=== PATIENT | female | born 1960 | race Caucasian/White ===

== ENCOUNTER 2017-06-23 13:34 | Emergency (ER) | payer BC ==
[~2017-06-23] VITALS: Ht 167.6 cm; Wt 108.9 kg
== END 2017-06-23 14:41 | disposition home or self-care (01) ==
LOC: ED 13:34
DX: M25.562 Pain in left knee (principal)

== ENCOUNTER 2019-10-21 05:40 | Day surgery (SDC) | payer OTHER ==
[~2019-10-21] VITALS: Ht 167.6 cm; Wt 119.8 kg
[~2019-10-21 05:40] MED LIST: PROZAC20 MG PO
[2019-10-21] MEDS ORDERED: MELATONIN3 MG PO (05:49)
--- NOTE | 2019-10-21 08:34 | NUR ---
10/21/19 0834 Gardenia Huffman 0818-PT ARRIVES TO PACU AND MOVES HEAD AND OPENS EYES TO VERBAL STIMULUS. PT STARTS TO HAVE GREEN, BILE TYPE EMSIS. DES AND MITZI RN AT BEDSIDE WITH THIS RN. HOB INCREASED AND SUCTION USED TO CLEAR AIRWAY. PT ABLE TO COUGH AND CLEAR OWN AIRWAY. PT UNABLE TO ANSWER QUESTIONS ABOUT FURTHER NAUSEA/PAIN AT THIS TIME. VSS. 0830-VSS. PT WAKES TO VERBAL STIMULUS. PT VOMITS AGAIN, EMESIS IS GREEN AND LIQUID. SUCTION USED. IV PHENERGAN USED.
--- NOTE | 2019-10-21 09:10 | NUR ---
CHRISTELLE MCCORMACK ON WARM. WARM BLANKET GIVEN. CALL LIGHT WITHIN REACH. ICED WATER GIVEN.
[2019-10-21] MEDS ORDERED: NORCO 5-325 TA1 EACH PO (09:28)
[2019-10-21] MEDS ORDERED: MOTRIN IB200 MG PO (09:28)
--- NOTE | 2019-10-21 10:09 | NUR ---
PATIENT WAKES EASILY TO MY VOICE AND REPORTS FEELING "VERY SLEEPY." PATIENT FALLS QUICKLY BACK TO SLEEP WHEN UNSTIMULATED. CHRISTELLE MCCORMACK CONTINUES ON WARM. PATIENT DENIES NEEDS AT THIS TIME.
--- NOTE | 2019-10-21 11:36 | NUR ---
LE 1110: PATIENT IS UP TO THE BATHROOM. PATIENT AMBULATES WELL AND DENIES DIZZINESS. PATIENT VOIDS 125 ML BLOOD TINGED URINE AND DISCHARGE INSTRUCTIONS ARE GIVEN. PATIENT VERBALIZES UNDERSTANDING. PATIENT TRANSFERS SELF TO WHEELCHAIR AND THEN TO PERSONAL VEHICLE AND DOES THAT WELL.
--- NOTE | 2019-10-21 12:03 | NUR ---
PT ALERT, ORIENTED AND SEEMS PREPARED. HAD FEW QUESTIONS, BU DID ENGAGE PT IN VISIT REGARDING HER COVID 19 EXPERIENCE. PT WAS LAYED OFF FROM HER EMPLOYMENT DUE TO VIRUS. SHE HAS BEEN UNABLE TO SIGN UP FOR UNEMPLOYMENT BENEFITS-ON HOLD OVER 4 HRS ON SEVERAL DIFFERENT OCCASIONS. PT ALSO INFORMED ME THAT HER PRESENT POSITION HAS BEEN CUT, AND SHE IS NOW LOOKING FOR NEW EMPLOYMENT. PT REQUESTED PRAYER FOR NOT ONLY HER HEALTH, BUT JOB WELL. GAVE COMFORT, PT SEEMS TO BE DEALING APPROPRIATELY.
--- NOTE | 2019-10-22 11:57 | PATH ---
[facility] [address] [place], [place] [address] Signed SPECIMEN(S): A ENDOMETRIAL CURETTINGS SPECIMEN(S): B ENDOCERVICAL CURETTINGS SPECIMEN SOURCE: A. ENDOMETRIAL CURETTINGS B. ENDOCERVICAL CURETTINGS CLINICAL HISTORY: Postmenopausal bleeding. FINAL PATHOLOGIC DIAGNOSIS: A. Endometrium, curettage: - Fragments of inactive endometrial glands and some cystically dilated glands. - Negative for hyperplasia, atypia, and malignancy. B. Endocervix, curettage: - Fragments of inactive endometrial glands with scattered cystically dilated glands. - Fragments of benign endocervix. - Negative for hyperplasia, atypia, and malignancy. DDF:cml:C2NR MICROSCOPIC EXAMINATION: Histologic sections of all submitted blocks are examined by light microscopy. These findings, together with the gross examination, support the pathologic diagnosis. GROSS DESCRIPTION: Two specimens are received in two containers, labeled "SS." A. The specimen, labeled "SS, A," and designated on the requisition "endometrial curettings," is received in formalin and consists of drew soft tissue fragments with mucus and clot material measuring 2.6 x 2.5 x 0.8 cm in aggregate. Specimen is filtered and entirely submitted in cassette A1. B. The specimen, labeled "SS, B," and designated on the requisition "endocervical curettings," is received in formalin and consists of drew-brown soft tissue fragments with mucus and clot material measuring 2.8 x 1.6 x 0.4 cm in aggregate. Specimen is filtered and entirely submitted in cassette B1. AT (under the direct supervision of a pathologist) The Gross Description was prepared using a voice recognition system. The report was reviewed for accuracy; however, sound-alike word errors, addition PATIENT NAME: ELISE MCDONALD PATHOLOGY DATE OF : 60 REPORT #: [id number] PHYSICIAN: TERRA SUN PCP: CHRIS CHARLES PA-C REPORT IS CONFIDENTIAL AND NOT TO BE RELEASED WITHOUT AUTHORIZATION [facility] [address] [place], [place] [address] Signed and/or deletions may occur. If there is any question about this report, please contact Client Services. PERFORMING LABORATORY: The technical component was performed by [facility], [address] [place] [id number] (Rim Fire Charger Operator: Tayla Mitchell MD; CLIA# [id number]). [facility], [address] [address] (CLIA# [id number]). Diagnostician: Norberto Briones DO Pathologist Electronically Signed 10/22/2019 Copies: ~ PATIENT NAME: ELISE MCDONALD PATHOLOGY DATE OF : 60 REPORT #: [id number] PHYSICIAN: TERRA PATHOLOGY PCP: CHRIS CHARLES PA-C REPORT IS CONFIDENTIAL AND NOT TO BE RELEASED WITHOUT AUTHORIZATION
--- NOTE | 2019-10-22 13:09 | OR ---
[facility] [address] [place] [address] Signed DATE OF OPERATION: 10/21/2019 SURGEON: Berto Hampton MD PREOPERATIVE DIAGNOSIS: Postmenopausal bleeding. POSTOPERATIVE DIAGNOSIS: Postmenopausal bleeding. PROCEDURE: Hysteroscopy with D and C and ECC. ANESTHESIA: General. ESTIMATED BLOOD LOSS: 20 mL. COMPLICATIONS: None. DRAINS: None. FINDINGS: Cervix small, thick, closed, uterus small sized. There was a slightly thickened endocervical tissue, but otherwise appeared fairly normal. The endometrial cavity appeared to be just to the patient's left side with the left ostia seen. Right ostia could not be seen and the cavity did not appear to be normal triangular shape. The endometrial tissue was smooth with no polyps or abnormal lesions seen. DESCRIPTION OF PROCEDURE: The patient was brought into the operating room, placed in supine position. After adequate general anesthesia was obtained, was placed in the dorsal lithotomy position, prepped and draped in usual sterile fashion. Bladder was emptied with straight catheterization. A Penn retractor inserted in the vagina and the Sherri above and the anterior lip of cervix grasped with an Allis clamp. The cervix was then serially dilated up to a #7 dilator. The hysteroscope was then set up and placed in the endocervical canal, entered the uterine cavity under direct visualization using sterile Electronically Signed By: BERTO HAMPTON MD 10/22/19 1309 PATIENT NAME: ELISE MCDONALD OPERATIVE REPORT DATE OF : 60 REPORT #: [id number] PHYSICIAN: BERTO HAMPTON MD PCP: HILARY PERSAUD PA-C REPORT IS CONFIDENTIAL AND NOT TO BE RELEASED WITHOUT AUTHORIZATION [address] [id number] Signed saline as distending medium. The above findings were noted. A MyoSure Lite was then placed through the hysteroscope and the tissue in the uterine cavity biopsied under direct visualization in a 360-degree fashion up to the fundus and down to the lower segment. The other ostia were never seen even with dissection. The hysteroscope was then brought down into the tissue and the endocervical canal biopsied with the MyoSure Lite under direct visualization, this was collected separately from the endometrial tissue. At this point, the hysteroscope was removed. The cervix noted to have good hemostasis. All instruments were removed from the vagina. The patient tolerated the procedure well and went to the recovery room in good condition. The sponge, needle and instrument counts were correct at the end of the procedure. The endometrial curettings and endocervical curettings were sent separately to Pathology for identification. MD JACKLYN Quintero/ELPIDIO /[id number] cc: Hilary Persaud PA-C Copies: HILARY PERSAUD PA-C ~ Electronically Signed By: BERTO HAMPTON MD 10/22/19 1309 PATIENT NAME: ELISE MCDONALD OPERATIVE REPORT DATE OF : 60 REPORT #: [id number] PHYSICIAN: BERTO HAMPTON MD PCP: HILARY PERSAUD PA-C REPORT IS CONFIDENTIAL AND NOT TO BE RELEASED WITHOUT AUTHORIZATION
== END 2019-10-21 11:20 | disposition home or self-care (01) ==
LOC: DS 05:40
PROVIDERS: General Practice
PROC: 0UDB8ZZ Extraction of Endometrium, Via Natural or Artificial Opening Endoscopic (ICD-10-PCS; principal; 2019-10-21 06:45)
DX: N85.8 Other specified noninflammatory disorders of uterus (principal); F32.9 Major depressive disorder, single episode, unspecified; F17.200 Nicotine dependence, unspecified, uncomplicated; E66.9 Obesity, unspecified; Z68.41 Body mass index [BMI] 40.0-44.9, adult; Z79.899 Other long term (current) drug therapy
CPT/HCPCS: 00952; J1885; J2250; J2550; J2704; J7121

== ENCOUNTER 2019-11-29 09:49 | Emergency (ER) | payer OTHER ==
[~2019-11-29] VITALS: Ht 167.6 cm; Wt 119.8 kg
[~2019-11-29 09:49] MED LIST changes: +MELATONIN3 MG PO; +MOTRIN IB200 MG PO; +NORCO 5-325 TA1 EACH PO
== END 2019-11-29 10:02 | disposition home or self-care (01) ==
LOC: ED 09:49
DX: M25.572 Pain in left ankle and joints of left foot (principal)

== ENCOUNTER 2022-04-23 12:27 | Emergency (ER) | payer OTHER ==
[~2022-04-23] VITALS: Ht 167.6 cm; Wt 119.8 kg
[2022-04-23] MEDS ORDERED: VITAMIN D21250 MCG PO (12:43)
[2022-04-23] MEDS ORDERED: ONDANSETRON ODT8 MG PO (16:05)
--- NOTE | 2022-04-23 22:19 | EKG ---
[facility] [address] [facility] [place] [address] Signed Normal sinus rhythm Normal ECG No previous ECGs available Confirmed by Suhail Guerra MD () on 04/23/2022 10:18:54 PM Electronically Signed By: SUHAIL GUERRA MD 04/23/22 2219 PATIENT NAME: ELISE MCDONALD Electrocardiogram DATE OF : 60 PHYSICIAN: SUHAIL GUERRA MD REPORT #: [id number] REPORT IS CONFIDENTIAL AND NOT TO BE RELEASED WITHOUT AUTHORIZATION
== END 2022-04-23 16:19 | disposition home or self-care (01) ==
LOC: ED 12:27
DX: B34.9 Viral infection, unspecified (principal); E86.0 Dehydration; Z20.822 Contact with and (suspected) exposure to COVID-19; Z79.899 Other long term (current) drug therapy
CPT/HCPCS: 36415; 71045; 80053; 81001; 85025; 87502; 93005; 93010; 96361; 96374; 99284-25; C9803; J2405; J7030; U0003

== ENCOUNTER 2025-03-17 07:22 | Day surgery (SDC) | payer OTHER ==
[~2025-03-17] VITALS: Ht 167.6 cm; Wt 108.0 kg
[~2025-03-17 07:22] MED LIST changes: +CEFAZOLIN SODIUM 2 GM in SODIUM CHLORIDE 0.9% 100 ML IV SCH; +CHLORTHALIDONE25 MG PO; +HYDROCODON-ACE1 EA10 PO; +HYDROXYZINE HCL25 MG PO; +IBLOOD GLUCOSE TEST STRIP 1 EA TEST VI PRN; +IBU600 MG PO; +LACTATED RINGER'S 1,000 ML IV SCH; +LIDOCAINE HCL 1% 5 ML SDV INJ ONE; +MULTI VITAMIN1 EACH PO; +ONDANSETRON ODT8 MG PO; +PAXLOVID 300-11 EAC1 PO; +VITAMIN D21250 MCG PO
[2025-03-17 07:42] VITALS: BP 135/79
[2025-03-17] MEDS ORDERED: HYDROCODON-ACE1 EA10 PO (07:48)
--- NOTE | 2025-03-17 09:00 | NUR ---
0900- PT IN POSITION OF COMFORT, BUT REQUESTED WARM BLANKET DUE TO ROOMS TEMP. NO OTHER NEEDS AT THIS TIME. CALL LIGHT IN REACH.
--- NOTE | 2025-03-17 09:38 | NUR ---
09:38- PT REQUESTED FOR HOB TO BE LOWERED AND LIGHTS TO BE TURNED OFF/ NO OTHER NEEDS AT THIS TIME. CALL LIGHT IN REACH.
[2025-03-17] MEDS ORDERED: BUPIVACAINE HCL 0.5% 30 ML VIAL ONE (10:16)
--- NOTE | 2025-03-17 10:48 | NUR ---
1045- PT RESTING WITH LIGHTS OFF. PT UPDATED ON TIME FRAME FOR PROCEDURE. PT REPORTS NO NEEDS AT THIS TIME. CALL LIGHT IN REACH.
[2025-03-17] MEDS ORDERED: KETAMINE in NS 50 MG/5 ML SYR ONE (11:19)
[2025-03-17] MEDS ORDERED: fentaNYL citrate 100 MCG/2 ML VIAL ONE ×2 (11:19→13:20)
[2025-03-17] MEDS ORDERED: DEXAMETHASONE SOD PHOS 4 MG/ML VIAL ONE (11:20)
[2025-03-17] MEDS ORDERED: MAGNESIUM SULFATE 1 GM/2 ML VIAL ONE (11:20)
[2025-03-17] MEDS ORDERED: ACETAMINOPHEN 1,000 MG/100 ML VIAL ONE (11:20)
[2025-03-17] MEDS ORDERED: ROCURONIUM BROMIDE 50 MG/5 ML SYR ONE (11:20)
[2025-03-17] MEDS ORDERED: LIDOCAINE HCL 2% 5 ML SDV ONE (11:20)
[2025-03-17] MEDS ORDERED: ESMOLOL HCL 100 MG/10 ML VIAL IV ONE (11:56)
[2025-03-17] MEDS ORDERED: GLYCOPYRROLATE 1 MG/5 ML MDV ONE (12:15)
[2025-03-17] MEDS ORDERED: fentaNYL citrate 50 MCG/ML SDV IV PRN (12:45)
[2025-03-17] MEDS ORDERED: HYDROmorphone HCL 1 MG/ML SYR IV PRN (12:45)
[2025-03-17] MEDS ORDERED: NALOXONE HCL 0.4 MG SYR IV PRN (12:45)
[2025-03-17] MEDS ORDERED: IBLOOD GLUCOSE TEST STRIP 1 EA TEST VI PRN (12:45)
[2025-03-17] MEDS ORDERED: KETOROLAC TROMETHAMINE 30 MG/ML VIAL IV PRN (12:45)
[2025-03-17] MEDS ORDERED: SUGAMMADEX SODIUM 200 MG/2 ML ML ONE (12:59)
[2025-03-17] MEDS ORDERED: SEVOFLURANE 250 ML BTL INH ONE (13:42)
--- NOTE | 2025-03-17 14:46 | NUR ---
1440- PT REPORT RECIEVED FROM BOILER COVERER HELPER. BOILER COVERER HELPER REPORTED PT WAS NAUSEATED AND WRETCHING IN PACU. MEDS GIVEN PER EMAR IN PACU AND PT NOW PRESENTING COMFORTABLE WITHOUT COMPLAINTS. PT ALSO PRESENTS WITH REDNESS TO HALF OF FACE THAT WAS NOT PRESENT PRIOR TO SURGERY. NO SWELLING OR OBSTRUCTION TO AIRWAY NOTED. VITALS, N/V, PAIN, AND WOUND ASSESSMENT ARE NOTED. PT EDUCATED ON DC PLAN, PT VERBALIZED UNDERSTANDING. PT IS DROWSY BUT ARROUSABLE TO VOICE AND TOUCH.
[2025-03-17 14:52] VITALS: BP 157/71
--- NOTE | 2025-03-17 15:04 | NUR ---
03/17/25 Marla Mcbride 1323- PT PRESENTS TO PACU, HIGH EMERY POSITION, NON REACTIVE TO STIMULUS, WRETCHING, SUCTION AT BEDSIDE. O2 AT 6L PER MASK, PT REQUIRES JAW THRUST TO MAINTAIN AIRWAY. LR INFUSING TO RFA IV. ABD SOFT, NON DISTENDED. BANDAIDS X 5 TO LAP SITES, CDI. ALL MONITORS IN PLACE. 1328- PT NO LONGER WRETCHING, HEAD OF BED LAID DOWN TO 30 DEGREES. 1338- PT MAINTAINING AIRWAY WITH HEAD POSITIONING AT THIS TIME, NO LONGER REQUIRES JAW THRUST. 1340- PT STIRS SOME AND SAYS "SICK", HEAD OF BED ELEVATED, EMESIS BAG IN FRONT OF PT, NO EMESIS PRODUCED ALTHOUGH WRETCHING MULTIPLE TIMES. MOVED TO ROOM AIR. MEDICATED WITH ZOFRAN. 1346- HEAD OF BED REMAINS ELEVATED, PT STILL REACTIVE TO STIMULUS, BUT VERY DROWSY AND BACK TO SLEEP. PT O2 SATS DROP TO 88% ON ROOM AIR, O2 PLACED BACK ON PT AT 6L PER MASK. 1400- ATTEMPTED TO WAKE PT AGAIN, PT BEGINS WRETCHING WITH NO EMESIS PRODUCTION, PT ABLE TO HOLD EMESIS BAG ON OWN. ATTEMPTED TO SPLINT ABD WITH PILLOW WHILE PT WRETCHING. MEDICATED WITH INAPSINE. MOVED TO ROOM AIR.
[2025-03-17] MEDS ORDERED: OXYCODONE HCL 5 MG TAB PO PRN (15:15)
[2025-03-17] MEDS ORDERED: MORPHINE SULFATE 4 MG/ML VIAL IV PRN (15:15)
[2025-03-17 15:45] VITALS: BP 151/81
--- NOTE | 2025-03-17 15:48 | NUR ---
1548- PT IN POSTION OF COMFORT, COMPLAINING OF SHARP PAIN ON THE R SIDE, PAIN SCALE NOTED. PT TOLLERATED EATING JELLO AND DRINKING WATER W/OUT N/V. PT IS MORE AWAKE NOW BUT STILL "FEELS TIRED".
--- NOTE | 2025-03-17 16:33 | NUR ---
1610- PT UP TO VOID- 200ML IN HAT. PT DRESSED SELF WITH MINIMAL ASSISTANCE. IV PULLED NOTED. 1620- PT EDUCATION PROVIDED, NO QUESTIONS OR CONERNS VOICED BY PT AND PT VERBALIZED UNDERSTANDING OF DC INSTRUCTIONS. 1623- PT AMBULATED TO WHEELCHAIR WITHOUT ISSUES. PT WHEELED TO FRONT OF HOSPITAL AND FAMILY MET THERE WITH CAR READY FOR PICK-UP. PT TRANSFERRED TO CAR WITHOUT ISSUE.
--- NOTE | 2025-03-21 10:37 | PATH ---
[facility] [address] [place], [place] [address] Signed SPECIMEN(S): A GALLBLADDER AND STONES SPECIMEN SOURCE: A. 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 NA MICROSCOPIC EXAMINATION: Histologic sections of all submitted blocks are examined by light microscopy. These findings, together with the gross examination, support the pathologic diagnosis. GROSS DESCRIPTION: The specimen, labeled and designated "Schiller, gallbladder and stones," is received in formalin and consists of Specimen: Previously opened/disrupted gallbladder. Dimensions: 7.2 x 3.3 x 2.0 cm. Serosa: [place]-drew and smooth. Cystic Duct: Obstructed by calculi, margin inked black and shaved. Calculi: Multiple black-brown fragmented calculi (0.1-0.9 cm in greatest dimension, and 2.5 x 0.8 x 0.6 cm in aggregate). Mucosa: [place]-drew to red-brown and velvety. Wall thickness: 0.2-0.5 cm. Lymph node: No pericystic lymph nodes are grossly identified. Additional: Thickened gallbladder wall at fundus (1.3 x 1.2 x 0.5 cm) that is approximately 6.0 cm from cystic duct margin. The serosa surrounding the thickened area is inked blue, and the tissue is serially sectioned to reveal a spongy pink-drew area containing multiple cystic pockets containing a clear viscous material. Public Works Director sections are submitted. Public Works Director sections are submitted in (A1). VB (under the direct supervision of a pathologist) The Gross Description was prepared using a voice recognition system. The report PATIENT NAME: ELISE MCDONALD PATHOLOGY DATE OF : 60 REPORT #: [id number] PHYSICIAN: TERRA SUN PCP: CHRIS CHARLES PA-C REPORT IS CONFIDENTIAL AND NOT TO BE RELEASED WITHOUT AUTHORIZATION [facility] [address] [place], [place] [address] Signed was reviewed for accuracy; however, sound-alike word errors, addition and/or deletions may occur. If there is any question about this report, please contact Client Services. ADDITIONAL NOTES: Immunohistochemical and/or in situ hybridization studies if performed in this case included appropriate positive controls that reacted as expected. This test was developed and its performance characteristics determined by [facility]. It has not been cleared or approved by the U.S. Food and Drug Administration. The FDA has determined that such clearance or approval is not necessary. This test is used for clinical purposes. It should not be regarded as investigational or for research. [facility] is certified under the Clinical Laboratory Improvement Amendments of 1988 (CLIA) as qualified to perform high complexity clinical laboratory testing. PERFORMING LABORATORY: Technical component was performed by [facility], [address] [place] [id number] (CLIA# [id number]). Professional interpretation was performed by [facility], [address] [place] [address] (CLIA#: [id number]). Diagnostician: Black Anand MD Pathologist Electronically Signed 03/21/2025 Copies: ~ PATIENT NAME: ELISE MCDONALD PATHOLOGY DATE OF : 60 REPORT #: [id number] PHYSICIAN: TERRA PATHOLOG[facility] PCP: CHRIS CHARLES PA-C REPORT IS CONFIDENTIAL AND NOT TO BE RELEASED WITHOUT AUTHORIZATION
== END 2025-03-17 16:23 | disposition home or self-care (01) ==
LOC: DS 07:22 → OPS 07:22 → DS 07:30 → OPS 09:30 → DS 11:30 → OPS 11:30
PROVIDERS: ATTEND Surgery
PROC: 0FT44ZZ Resection of Gallbladder, Percutaneous Endoscopic Approach (ICD-10-PCS; principal; 2025-03-17 09:30)
DX: K80.10 Calculus of gallbladder with chronic cholecystitis without obstruction (principal); E78.5 Hyperlipidemia, unspecified
CPT/HCPCS: 00811; 88304; J0131; J0688; J1100; J1790; J2003; J2405; J2704; J3010; J3475; J3490; J7121

== ENCOUNTER 2025-05-13 09:50 | Emergency (ER) | payer OTHER ==
[~2025-05-13] VITALS: Ht 167.6 cm; Wt 111.0 kg
[~2025-05-13 09:50] MED LIST changes: -CEFAZOLIN SODIUM 2 GM in SODIUM CHLORIDE 0.9% 100 ML IV SCH; -IBLOOD GLUCOSE TEST STRIP 1 EA TEST VI PRN; -LACTATED RINGER'S 1,000 ML IV SCH; -LIDOCAINE HCL 1% 5 ML SDV INJ ONE
[2025-05-13] MEDS ORDERED: OXYCODONE HCL5 M3 (10:06)
[2025-05-13 10:45] VITALS: BP 121/80
[2025-05-13] MEDS ORDERED: IBUPROFEN 600 MG TAB PO ONE (10:45)
== END 2025-05-13 10:54 | disposition home or self-care (01) ==
LOC: ED 09:50
DX: S83.92XA Sprain of unspecified site of left knee, initial encounter (principal); W18.30XA Fall on same level, unspecified, initial encounter; Z79.899 Other long term (current) drug therapy
CPT/HCPCS: 73560; 99283; A9270